=== PATIENT | male | born 1970 | race Two or more races ===

== ENCOUNTER 2019-10-30 12:30 | Emergency (ER) | payer OTHER ==
[~2019-10-30] VITALS: Ht 170.2 cm; Wt 77.1 kg
[2019-10-30 12:47] VITALS: BP 127/92
== END 2019-10-30 13:48 | disposition home or self-care (01) ==
LOC: ER 12:32
DX: Z03.818 Encounter for observation for suspected exposure to other biological agents ruled out (principal)
CPT/HCPCS: 99283; U0003

== ENCOUNTER 2019-11-30 13:40 | Emergency (ER) | payer OTHER ==
[~2019-11-30] VITALS: Ht 170.2 cm; Wt 77.1 kg
[2019-11-30 13:50] VITALS: BP 127/86
--- NOTE | 2019-11-30 14:27 | NUR ---
Patient discharged to home in stable condition. Written and verbal after care instructions given. Patient verbalizes understanding of instruction.
== END 2019-11-30 14:27 | disposition home or self-care (01) ==
LOC: ER 13:45
DX: Z03.818 Encounter for observation for suspected exposure to other biological agents ruled out (principal)
CPT/HCPCS: 99283; C9803; U0003

== ENCOUNTER 2019-12-18 09:11 | Emergency (ER) | payer OTHER ==
[~2019-12-18] VITALS: Ht 170.2 cm; Wt 77.1 kg
[2019-12-18 09:33] VITALS: BP 131/70
== END 2019-12-18 09:47 | disposition home or self-care (01) ==
LOC: ER 09:11
DX: Z11.59 Encounter for screening for other viral diseases (principal)
CPT/HCPCS: 99283; C9803; U0003

== ENCOUNTER 2019-12-31 09:52 | Emergency (ER) | payer OTHER ==
[~2019-12-31] VITALS: Ht 170.2 cm; Wt 77.1 kg
[2019-12-31 09:59] VITALS: BP 128/79
--- NOTE | 2019-12-31 10:09 | NUR ---
COVID SWAB OBTAINED AND SENT TO LAB.
--- NOTE | 2019-12-31 10:12 | NUR ---
Patient discharged to home in stable condition. Written and verbal after care instructions given. Patient verbalizes understanding of instruction.
== END 2019-12-31 10:13 | disposition home or self-care (01) ==
LOC: ER 09:53
DX: Z11.59 Encounter for screening for other viral diseases (principal)
CPT/HCPCS: 99283; C9803; U0003

== ENCOUNTER 2020-01-14 08:57 | Emergency (ER) | payer OTHER ==
[~2020-01-14] VITALS: Ht 170.2 cm; Wt 72.6 kg
[2020-01-14 09:05] VITALS: BP 111/74
--- NOTE | 2020-01-14 09:39 | NUR ---
Patient discharged to home in stable condition. Written and verbal after care instructions given. Patient verbalizes understanding of instruction.
== END 2020-01-14 09:40 | disposition home or self-care (01) ==
LOC: ER 09:01
DX: Z20.828 Contact with and (suspected) exposure to other viral communicable diseases (principal)
CPT/HCPCS: 99283; C9803; U0003

== ENCOUNTER 2020-05-22 09:58 | Emergency (ER) | payer BC, OTHER ==
[~2020-05-22] VITALS: Ht 172.7 cm; Wt 77.1 kg
[2020-05-22 10:13] VITALS: BP 127/72
== END 2020-05-22 12:38 | disposition home or self-care (01) ==
LOC: ER 10:01
DX: U07.1 COVID-19 (principal); R00.0 Tachycardia, unspecified
CPT/HCPCS: 71045; 87426; 93005; 99285; C9803; U0003

== ENCOUNTER 2020-06-06 06:11 | Emergency (ER) | payer BC, OTHER ==
[~2020-06-06] VITALS: Ht 172.7 cm; Wt 77.1 kg
[2020-06-06 06:14] VITALS: BP 122/82
--- NOTE | 2020-06-07 23:57 | NUR ---
LAB CALLED REGARDING NEGATIVE COVID RESULT.
== END 2020-06-06 07:08 | disposition home or self-care (01) ==
LOC: ER 06:13
DX: Z09 Encounter for follow-up examination after completed treatment for conditions other than malignant neoplasm (principal); Z86.19 Personal history of other infectious and parasitic diseases
CPT/HCPCS: 99283; C9803; U0003

== ENCOUNTER 2020-08-09 06:35 | Outpatient (CLI) | payer BC ==
[2020-08-09 07:46] LABS: BILIRUBIN,URINE NEGATIVE (NEGATIVE); COLOR,URINE YELLOW (YELLOW); LEUKOCYTE ESTERASE ,URINE NEGATIVE (NEGATIVE); NITRITE, URINE NEGATIVE (NEGATIVE); PROTEIN,URINE NEGATIVE (NEGATIVE); UGLUCOSE NEGATIVE (NEGATIVE); UROBILINOGEN,URINE 0.2 EU/dL (0.2)
[2020-08-09 07:54] LABS: BASOPHILS % (AUTO) 0.4 % (0.0-2.0); EOSINOPHILS % (AUTO) 1.8 % (0.0-6.0); HEMATOCRIT 46 % (39-51); HEMOGLOBIN 15.6 g/dL (13.5-17.5); LYMPHOCYTES # (AUTO) 2.6 /CMM (0.8-4.8); LYMPHOCYTES % (AUTO) 30.3 % (20.0-44.0); MEAN CORPUSCULAR HGB CONC 34 g/dl (31.0-36.0); MEAN CORPUSCULAR VOLUME 86 fL (80-96); MONOCYTES # (AUTO) 0.6 /CMM (0.1-1.30); MONOCYTES % (AUTO) 6.9 % (2.0-12.0); NEUTROPHILS # (AUTO) 5.3 /CMM (1.8-8.9); NEUTROPHILS % (AUTO) 60.6 % (43.0-81.0); PLATELET COUNT (AUTO) 211 /CMM (150-450); RED BLOOD CELL COUNT(AUTO) 5.34 MIL/uL (4.5-6.0); WHITE BLOOD COUNT (AUTO) 8.7 K/uL (4.3-11.0)
[2020-08-09 08:27] LABS: THYROID STIMULATING HORMONE 1.856 uIU/mL (0.358-3.74); URIC ACID 5.8 mg/dL (2.6-7.2)
[2020-08-09 08:44] LABS: ALBUMIN 4.1 g/dL (3.4-5.0); BILIRUBIN,TOTAL 0.6 mg/dL (0.2-1.0); CALCIUM, SERUM 9.2 mg/dL (8.5-10.1); CREATININE 1.1 mg/dL (0.6-1.3); TOTAL PROTEIN, SERUM 7.8 g/dL (6.4-8.2)
[2020-08-09 08:52] LABS: POTASSIUM 4.3 mmol/L (3.5-5.1)
== END 2020-08-09 23:59 | disposition home or self-care (01) ==
LOC: LAB 06:35
PROVIDERS: ATTEND Legal Medicine
DX: E03.9 Hypothyroidism, unspecified (principal); D64.9 Anemia, unspecified; Z00.00 Encounter for general adult medical examination without abnormal findings
CPT/HCPCS: 36415; 80053-TC; 80061-TC; 82306; 82607-TC; 82728-TC; 83540-TC; 84402; 84403; 84439-TC; 84443-TC; 84550-TC; 85025-TC

== ENCOUNTER 2021-01-17 07:17 | Outpatient (CLI) | payer BC ==
[2021-01-17 08:39] LABS: BASOPHILS % (AUTO) 0.5 % (0.0-2.0); EOSINOPHILS % (AUTO) 1.3 % (0.0-6.0); HEMATOCRIT 43 % (39-51); HEMOGLOBIN 14.7 g/dL (13.5-17.5); LYMPHOCYTES # (AUTO) 2.7 K/uL (0.8-4.8); LYMPHOCYTES % (AUTO) 30.1 % (20.0-44.0); MEAN CORPUSCULAR HGB CONC 34 g/dl (31.0-36.0); MEAN CORPUSCULAR VOLUME 87 fL (80-96); MONOCYTES # (AUTO) 0.7 K/uL (0.1-1.30); NEUTROPHILS # (AUTO) 5.4 K/uL (1.8-8.9); NEUTROPHILS % (AUTO) 60.1 % (43.0-81.0); PLATELET COUNT (AUTO) 201 K/uL (150-450)
[2021-01-17 08:50] LABS: BILIRUBIN,URINE NEGATIVE (NEGATIVE); COLOR,URINE YELLOW (YELLOW); LEUKOCYTE ESTERASE ,URINE NEGATIVE (NEGATIVE); NITRITE, URINE NEGATIVE (NEGATIVE); PROTEIN,URINE NEGATIVE (NEGATIVE); UGLUCOSE NEGATIVE (NEGATIVE); UROBILINOGEN,URINE 0.2 EU/dL (0.2)
[2021-01-17 09:08] LABS: C-REACTIVE PROTEIN 0.4 mg/dL (0.0-0.9); CHOLESTEROL 162 mg/dL (<200); CREATINE KINASE, TOTAL 110 U/L (39-308); HDL CHOLESTEROL 28 mg/dL (40-60); IRON, SERUM 143 ug/dl (50-175); LDL 84 mg/dL (0-99); THYROID STIMULATING HORMONE 1.588 uIU/mL (0.358-3.74); TRIGLYCERIDES 309 mg/dL (30-150)
[2021-01-17 09:22] LABS: ALANINE AMINOTRANSFERASE 35 U/L (12-78); ALBUMIN 4.1 g/dL (3.4-5.0); ALKALINE PHOSPHATASE 121 U/L (46-116); ASPARTATE AMINOTRANSFERASE 26 U/L (15-37); BILIRUBIN,TOTAL 0.6 mg/dL (0.2-1.0); CALCIUM, SERUM 8.8 mg/dL (8.5-10.1); CARBON DIOXIDE 23 mmol/L (21-32); CHLORIDE 105 mmol/L (98-107); CREATININE 1.1 mg/dL (0.6-1.3); GLUCOSE 104 mg/dL (74-106); POTASSIUM 4.2 mmol/L (3.5-5.1); SODIUM SERUM 139 mmol/L (136-145); TOTAL PROTEIN, SERUM 7.7 g/dL (6.4-8.2); UREA NITROGEN, BLOOD 19 mg/dL (7-18)
== END 2021-01-17 23:59 | disposition home or self-care (01) ==
LOC: LAB 07:17
PROVIDERS: ATTEND Legal Medicine
DX: E11.22 Type 2 diabetes mellitus with diabetic chronic kidney disease (principal); N18.9 Chronic kidney disease, unspecified; E78.5 Hyperlipidemia, unspecified; R53.1 Weakness; Z00.00 Encounter for general adult medical examination without abnormal findings
CPT/HCPCS: 36415; 71046; 80053-TC; 80061-TC; 82306; 82550-TC; 82607-TC; 83540-TC; 84402; 84403; 84439-TC; 84443-TC; 84484-TC; 85025-TC; 85652-TC; 86140-TC

== ENCOUNTER 2022-06-08 06:25 | Outpatient (CLI) | payer BC ==
[~2022-06-08 06:25] MED LIST: HYDR-3972 PO
[2022-06-08 09:19] LABS: BASOPHILS % (AUTO) 0.3 % (0.0-2.0); HEMATOCRIT 45 % (39-51); HEMOGLOBIN 14.9 g/dL (13.5-17.5); LYMPHOCYTES # (AUTO) 2.1 K/uL (0.8-4.8); LYMPHOCYTES % (AUTO) 31.1 % (20.0-44.0); MEAN CORPUSCULAR HGB CONC 33 g/dl (31.0-36.0); MEAN CORPUSCULAR VOLUME 86 fL (80-96); MONOCYTES # (AUTO) 0.4 K/uL (0.1-1.30); MONOCYTES % (AUTO) 6.6 % (2.0-12.0); PLATELET COUNT (AUTO) 200 K/uL (150-450); RED BLOOD CELL COUNT(AUTO) 5.21 MIL/uL (4.5-6.0); WHITE BLOOD COUNT (AUTO) 6.6 K/uL (4.3-11.0)
[2022-06-08 09:30] LABS: IRON, SERUM 101 ug/dl (50-175); TOTAL IRON BINDING CAPACITY 297 ug/dl (250-450)
[2022-06-08 09:49] LABS: C-REACTIVE PROTEIN 0.3 mg/dL (0.0-0.9); CHOLESTEROL 174 mg/dL (<200); FERRITIN 85 ng/mL (8-388); HDL CHOLESTEROL 40 mg/dL (40-60); LDL 115 mg/dL (0-99); PROSTATE SPECIFIC ANTIGEN SCR 0.83 ng/mL (0.00-4.00); TRIGLYCERIDES 121 mg/dL (30-150); URIC ACID 5.8 mg/dL (2.6-7.2)
[2022-06-08 09:50] LABS: BILIRUBIN,URINE NEGATIVE (NEGATIVE); COLOR,URINE YELLOW (YELLOW); LEUKOCYTE ESTERASE ,URINE NEGATIVE (NEGATIVE); NITRITE, URINE NEGATIVE (NEGATIVE); PH,URINE 7.5 (5.0-8.0); PROTEIN,URINE NEGATIVE (NEGATIVE); UGLUCOSE NEGATIVE (NEGATIVE); UROBILINOGEN,URINE 0.2 EU/dL (0.2)
[2022-06-08 10:33] LABS: ALANINE AMINOTRANSFERASE 31 U/L (12-78); ALBUMIN 3.8 g/dL (3.4-5.0); ALKALINE PHOSPHATASE 109 U/L (46-116); ASPARTATE AMINOTRANSFERASE 28 U/L (15-37); BILIRUBIN,TOTAL 0.5 mg/dL (0.2-1.0); CALCIUM, SERUM 8.8 mg/dL (8.5-10.1); CARBON DIOXIDE 25 mmol/L (21-32); CHLORIDE 104 mmol/L (98-107); GLUCOSE 108 mg/dL (74-106); POTASSIUM 4.2 mmol/L (3.5-5.1); SODIUM SERUM 136 mmol/L (136-145); TOTAL PROTEIN, SERUM 7.5 g/dL (6.4-8.2); UREA NITROGEN, BLOOD 14 mg/dL (7-18)
== END 2022-06-08 23:59 | disposition home or self-care (01) ==
LOC: LAB 06:25
PROVIDERS: ATTEND Legal Medicine
DX: Z00.00 Encounter for general adult medical examination without abnormal findings (principal); E78.00 Pure hypercholesterolemia, unspecified; R53.1 Weakness; E11.9 Type 2 diabetes mellitus without complications; I10 Essential (primary) hypertension; E03.9 Hypothyroidism, unspecified; D64.9 Anemia, unspecified; E55.9 Vitamin D deficiency, unspecified
CPT/HCPCS: 36415; 80053-TC; 80061-TC; 82607-TC; 82728-TC; 83540-TC; 84153-TC; 84402; 84403; 84443-TC; 84550-TC; 85025-TC; 85652-TC; 86140-TC; 86431-TC